=== PATIENT | female | born 1975 ===

== ENCOUNTER 2017-12-20 15:15 | Emergency (ER) | payer OTHER ==
[2017-12-20 15:43] VITALS: TEMP 98.5; BMI 29.2
[2017-12-20] MEDS ORDERED: Sodium Chloride 0.9% 1,000 ML IV STA (16:03)
--- NOTE | 2017-12-20 16:17 | ED PDOC ---
Arrival/HPI - General Chief Complaint: Abdominal Pain Time Seen by Provider: 12/20/17 15:30 Historian: Patient - History of Present Illness Narrative History of Present Illness (Text): 12/20/17 16:12 Leonor Carrion is a 42 year old female, whose past medical history includes total abdominal hysterectomy, who presents to the emergency department complaining of intermittent lower abdominal pain for one month. Patient describes her pain to be sharp located in her lower abdomen and mostly in her pelvic area. No nausea, vomiting, or diarrhea. Patient notes that one week ago she experienced 1 episode of vaginal bleeding which resolved in one day and a similar episode occurred one month prior. Patient also describes to have a numbing sensation radiating back and forth between her right breast to the middle of her right arm for one month. Patient denies any pain to breast or arm , fever, chills, body aches, nipple discharge, rash, or any other complaints at this time. Time/Duration: 1 week Symptom Onset: Gradual Symptom Course: Intermittent Activities at Onset: Light Context: Home Past Medical History - Provider Review Nursing Documentation Reviewed: Yes - Cardiac Hx Hypertension: Yes - Psychiatric Hx Psychophysiologic Disorder: Yes Hx Anxiety: Yes Hx Substance Use: Yes Other/Comment: ADHD - Surgical History Hx Hysterectomy: Yes - Anesthesia Hx Anesthesia: Yes Hx Anesthesia Reactions: No Hx Malignant Hyperthermia: No Family/Social History - Physician Review Nursing Documentation Reviewed: Yes Family/Social History: No Known Family HX Smoking Status: Light Smoker < 10 Cigarettes Daily Hx Alcohol Use: Yes Frequency of alcohol use: Socially Hx Substance Use: Yes Substance used: pot Allergies/Home Meds Allergies/Adverse Reactions: Allergies No Known Allergies Allergy (Verified 12/20/17 15:32) Review of Systems - Review of Systems Constitutional: absent: Fevers, Night Sweats Eyes: absent: Vision Changes ENT: absent: Hearing Changes Respiratory: absent: SOB, Cough Cardiovascular: absent: Chest Pain Gastrointestinal: Abdominal Pain Genitourinary Female: Vaginal Bleeding. absent: Dysuria, Frequency Musculoskeletal: absent: Arthralgias Skin: absent: Rash, Pruritis Neurological: Other (Numbing sensation radiated between right breast to middle of right arm). absent: Headache, Dizziness Endocrine: absent: Diaphoresis Hemo/Lymphatic: absent: Adenopathy Psychiatric: absent: Anxiety, Depression Physical Exam Vital Signs Reviewed: Yes Vital Signs Temp Pulse Resp BP Pulse Ox 12/20/17 17:21 86 18 148/89 96 12/20/17 15:33 98.5 F 95 H 18 155/92 H 96 Temperature: Afebrile Blood Pressure: Hypertensive Pulse: Tachycardic Respiratory Rate: Normal Appearance: Positive for: Well-Appearing, Non-Toxic, Comfortable Pain Distress: None Mental Status: Positive for: Alert and Oriented X 3 - Systems Exam Head: Present: Atraumatic, Normocephalic Pupils: Present: PERRL Extroacular Muscles: Present: EOMI Conjunctiva: Present: Normal Mouth: Present: Moist Mucous Membranes Neck: Present: Normal Range of Motion Respiratory/Chest: Present: Clear to Auscultation, Good Air Exchange. No: Respiratory Distress, Accessory Muscle Use Cardiovascular: Present: Regular Rate and Rhythm, Normal S1, S2. No: Murmurs Abdomen: Present: Tenderness (Tenderness to primarily suprapubic area and mildly lower abd bilaterally ), Guarding. No: Distention Breast/Axillary: Present: Other (chaperoned by nurse Martínez). No: Erythema ( no rash), Masses, Nipple Discharge, Tender to Palpation (breast implants palpable, no tenderness) Genitourinary/Pelvic Exam: Present: Normal External Genitalia, Other ( chaperoned by nurse Martínez; no cervical os visualized. Pt s/p SHAHEED Oct 2016). No: Vaginal Discharge, Vaginal Bleeding, Adenexal Tenderness, Cervical Motion Tendernes, Cervical os Closed Back: Present: Normal Inspection. No: CVA Tenderness, Midline Tenderness, Paraspinal Tenderness Upper Extremity: Present: Normal Inspection. No: Cyanosis, Edema Lower Extremity: Present: Normal Inspection. No: Edema Neurological: Present: GCS=15, CN II-XII Intact, Speech Normal Skin: Present: Warm, Dry, Normal Color. No: Rashes Psychiatric: Present: Alert, Oriented x 3, Normal Insight, Normal Concentration Medical Decision Making ED Course and Treatment: 12/20/17 16:20 Impression: 42 year old female complaining of intermittent lower abdominal pain for one week. Differential Diagnosis included but are not limited to: Lower abdominal pain with vaginal bleeding r/o mass vs. enteritis vs kidney stone Plan: -- EKG -- Abdomen and Pelvis CT with contrast -- Urinalysis and Urine Culture -- Labs -- Toradol, Ativan, and IV fluids -- Reassess and disposition Progress Notes: EKG: Ordered, reviewed, and independently interpreted the EKG. Rate : 103 BPM Rhythm : Sinus Tachycardia Interpretation : No ST-segment elevations or depressions, no T-wave inversions, normal intervals. Comparison : No previous EKG for comparison. 12/20/17 17:46 Patient is also very anxious. She denies any drug use or alcohol. No SI or HI. She's just nervous about her medical issues because her mom not too long ago and she's getting similar medical issues. Ativan given which helped her symptoms and she now appears comfortable. 12/20/17 18:51 CT results discussed with Dr. Arango, Radiologist. He mentioned a tubular structure in the left pelvis. He recommends an ultrasound to r/o hydrosalpinx. Signed out to Dr. Harrington to f/u TV sono, reevaluate and disposition. Accession No. : [id number] Patient Name / ID : GONZALO MENDES / [id number] Exam Date : 12/20/2017 18:27:20 ( Addendum_dictating ) Study Comment : Sex / Age : F / 42Y Creator : Sarabjit Haq MD Dictator : Sarabjit Haq MD Radiographic Technologist : Reinforcing Iron Worker Helper : Sarabjit Haq MD Approver2 : Report Date : 12/20/2017 18:46:38 My Comment : PROCEDURE: CT Abdomen and Pelvis with contrast HISTORY: Lower abdominal pain. Relevant surgical history: Prior hysterectomy COMPARISON: None. TECHNIQUE: Contrast dose: 100 cc Omnipaque 350 Radiation dose: Total exam DLP = 483.95 mGy-cm. This CT exam was performed using one or more of the following dose reduction techniques: Automated exposure control, adjustment of the mA and/or kV according to patient size, and/or use of iterative reconstruction technique. FINDINGS: LOWER THORAX: Unremarkable. LIVER: Hepatic steatosis. No focal masses. No intrahepatic bile duct dilatation or perihepatic ascites. Focal fatty sparing adjacent to the falciform ligament GALLBLADDER AND BILE DUCTS: Unremarkable. PANCREAS: Unremarkable. No gross lesion or ductal dilatation. SPLEEN: Unremarkable. ADRENALS: Unremarkable. No mass. KIDNEYS AND URETERS: Unremarkable. No hydronephrosis. No solid mass. Incidental finding(s): Simple cyst right kidney VASCULATURE: Unremarkable. No aortic aneurysm. BOWEL: Constipation without fecal impaction or obstruction. APPENDIX: Normal appendix. PERITONEUM: Unremarkable. No free fluid. No free air. LYMPH NODES: Unremarkable. No enlarged lymph nodes. BLADDER: Unremarkable. REPRODUCTIVE: Status post hysterectomy. There is a tubular structure in the pelvis on the left which may be a small fluid collection. This measures 1.8 x 3.4 cm. BONES: No acute fracture. OTHER FINDINGS: None. IMPRESSION: No significant or acute findings to account for/ related to the clinical presentation. Additional benign and/or incidental findings described above. 12/20/17 18:54 - Lab Interpretations Lab Results: 12/20/17 16:55 12/20/17 16:55 Lab Results 12/20/17 17:00: Urine Opiates Screen Negative, Urine Methadone Screen Negative, Ur Barbiturates Screen Negative, Ur Phencyclidine Scrn Negative, Ur Amphetamines Screen Positive H, U Benzodiazepines Scrn Negative, U Oth Cocaine Metabols Negative, U Cannabinoids Screen Positive H 12/20/17 17:00: Urine Color Yellow, Urine Appearance Clear, Urine pH 6.0, Ur Specific [place] 1.025, Urine Protein Negative, Urine Glucose (UA) Negative, Urine Ketones Negative, Urine Blood Trace-intact H, Urine Nitrate Negative, Urine Bilirubin Negative, Urine Urobilinogen 0.2, Ur Leukocyte Esterase Negative , Urine RBC 1 - 3, Urine WBC Negative, Ur Epithelial Cells 1 - 3, Urine Bacteria Few 12/20/17 16:55: Sodium 143, Potassium 3.9, Chloride 108 H, Carbon Dioxide 24, Anion Gap 15, BUN 16, Creatinine 0.8, Est GFR ( Amer) > 60, Est GFR (Non- Af Amer) > 60, Random Glucose 105, Calcium 9.9, Total Bilirubin 0.3, AST 32, ALT 40, Alkaline Phosphatase 43, Total Protein 6.9, Albumin 4.0, Globulin 2.9, Albumin/Globulin Ratio 1.4 03/13/18 16:55: WBC 8.1, RBC 3.98, Hgb 12.7, Hct 38.5, MCV 96.7, MCH 31.9, MCHC 33.0, RDW 12.7, Plt Count 292, MPV 10.1, Gran % 60.1, Lymph % (Auto) 31.1, [place] % (Auto) 5.8, Eos % (Auto) 2.5, Baso % (Auto) 0.5, Gran # 4.84, Lymph # (Auto) 2.5, [place] # (Auto) 0.5, Eos # (Auto) 0.2, Baso # (Auto) 0.04 I have reviewed the lab results: Yes - RAD Interpretation Radiology Orders: 12/20/17 16:06 ABD & PELVIS IV CONTRAST ONLY [CT] Stat 12/20/17 18:50 TRANSVAGINAL [US] Stat - Medication Orders Current Medication Orders: Sodium Chloride (Sodium Chloride 0.9%) 1,000 mls @ 100 mls/hr IV .Q10H STA Stop: 12/21/17 02:02 Last Admin: 12/20/17 17:06 Dose: 100 mls/hr eMAR Start Stop Document 12/20/17 17:06 HI (Rec: 12/20/17 17:06 HI [id number]) Intravenous Solution Start Date 12/20/17 Start Time 17:06 Discontinued Medications Ketorolac Tromethamine (Toradol) 30 mg IVP STAT STA Stop: 12/20/17 16:04 Last Admin: 12/20/17 16:50 Dose: 30 mg MAR Pain Assessment Document 12/20/17 16:50 HI (Rec: 12/20/17 17:06 HI [id number]) Pain Reassessment Is this a pain reassessment? No Sleep Is patient sleeping during reassessment? No Presence of Pain Presence of Pain Yes Pain Scale Used Pain Scale Used Numeric Location Upper or Lower Lower Pain Location Body Site Abdomen IVP Administration Document 12/20/17 16:50 HI (Rec: 12/20/17 17:06 HI [id number]) Charges for Administration # of IVP Administrations 1 Lorazepam (Ativan) 1 mg PO ONCE ONE PRN Reason: Protocol Stop: 12/20/17 16:13 Last Admin: 03/13/18 16:50 Dose: 1 mg - Scribe Statement The provider has reviewed the documentation as recorded by the Jean Marieibmary Troncoso Provider Scribe Attestation: All medical record entries made by the Scribe were at my direction and personally dictated by me. I have reviewed the chart and agree that the record accurately reflects my personal performance of the history, physical exam, medical decision making, and the department course for this patient. I have also personally directed, reviewed, and agree with the discharge instructions and disposition. Disposition/Present on Arrival - Present on Arrival Any Indicators Present on Arrival: No History of DVT/PE: No History of Uncontrolled Diabetes: No Urinary Catheter: No History of Decub. Ulcer: No History Surgical Site Infection Following: None - Disposition Have Diagnosis and Disposition been Completed?: No Diagnosis: Abdominal pain, Numbness Disposition Time: 18:54 Condition: IMPROVED Referrals: Ana Harris, [Primary Care Provider] - Follow up with primary Forms: [employer] (Spanish)
[2017-12-20 17:10] LABS: BASO # 0.04 K/mm3 (0.0-2.0); BASO % 0.5 % (0.0-3.0); EOS # 0.2 (0.0-0.7); EOS % 2.5 % (1.5-5.0); GRAN # 4.84 (1.4-6.5); GRAN % 60.1 % (50.0-68.0); HEMOGLOBIN 12.7 g/dL (12.0-16.0); LYMPH # 2.5 (1.2-3.4); LYMPH % 31.1 % (22.0-35.0); MEAN CELL VOLUME 96.7 fl (80.0-105.0); MEAN CORPUSCULAR HEMOGLOBIN 31.9 pg (25.0-35.0); MEAN PLATELET VOLUME 10.1 fl (7.0-11.0); MONO # 0.5 (0.1-0.6); MONO % 5.8 % (1.0-6.0); RBC 3.98 10^6/uL (3.5-6.1); RED CELL DISTRIBUTION WIDTH 12.7 % (11.5-14.5); WHITE BLOOD COUNT 8.1 10^3/ul (4.5-11.0)
[2017-12-20 17:19] LABS: ALB/GLOB RATIO 1.4 (1.1-1.8); ALT/SGPT 40 U/L (7-56); AST/SGOT 32 U/L (14-36); BLOOD UREA NITROGEN 16 mg/dL (7-21); CALCIUM 9.9 mg/dL (8.4-10.5); GFR AFRICAN-AMERICAN > 60; GFR NON-AFRICAN AMERICAN > 60
[2017-12-20 17:48] LABS: URINE BILIRUBIN NEGATIVE (NEGATIVE); URINE BLOOD TRACE-INTACT (NEGATIVE); URINE GLUCOSE (UA) NEGATIVE (NEGATIVE); URINE LEUKOCYTE ESTERASE NEGATIVE Leu/uL (NEGATIVE); URINE PROTEIN NEGATIVE mg/dL (<30 mg/dL); URINE UROBILINOGEN 0.2 E.U./dL (<1 E.U./dL)
[2017-12-20 17:49] LABS: URINE APPEARANCE CLEAR (CLEAR); URINE COLOR YELLOW (YELLOW)
[2017-12-20 17:54] LABS: URINE BACTERIA FEW (NEG); URINE WBC NEGATIVE /hpf (0-6)
[2017-12-20] MEDS ORDERED: Iohexol 350 MG/100 ML VIAL ONE (18:04)
[2017-12-20 18:08] LABS: BARBITURATES, UR NEGATIVE (NEGATIVE); BENZODIAZEPINES, UR NEGATIVE (NEGATIVE); OPIATES, UR NEGATIVE (NEGATIVE); PHENCYCLIDINE, UR NEGATIVE (NEGATIVE)
--- NOTE | 2017-12-20 18:48 | CT ---
PROCEDURE: CT Abdomen and Pelvis with contrast HISTORY: Lower abdominal pain. Relevant surgical history: Prior hysterectomy COMPARISON: None. TECHNIQUE: Contrast dose: 100 cc Omnipaque 350 Radiation dose: Total exam DLP = 483.95 mGy-cm. This CT exam was performed using one or more of the following dose reduction techniques: Automated exposure control, adjustment of the mA and/or kV according to patient size, and/or use of iterative reconstruction technique. FINDINGS: LOWER THORAX: Unremarkable. LIVER: Hepatic steatosis. No focal masses. No intrahepatic bile duct dilatation or perihepatic ascites. Focal fatty sparing adjacent to the falciform ligament GALLBLADDER AND BILE DUCTS: Unremarkable. PANCREAS: Unremarkable. No gross lesion or ductal dilatation. SPLEEN: Unremarkable. ADRENALS: Unremarkable. No mass. KIDNEYS AND URETERS: Unremarkable. No hydronephrosis. No solid mass. Incidental finding(s): Simple cyst right kidney VASCULATURE: Unremarkable. No aortic aneurysm. BOWEL: Constipation without fecal impaction or obstruction. APPENDIX: Normal appendix. PERITONEUM: Unremarkable. No free fluid. No free air. LYMPH NODES: Unremarkable. No enlarged lymph nodes. BLADDER: Unremarkable. REPRODUCTIVE: Status post hysterectomy. There is a tubular structure in the pelvis on the left which may be a small fluid collection. This measures 1.8 x 3.4 cm. BONES: No acute fracture. OTHER FINDINGS: None. IMPRESSION: No significant or acute findings to account for/ related to the clinical presentation. Additional benign and/or incidental findings described above.
[2017-12-20 19:16] VITALS: RESP 16
[2017-12-20] MEDS ORDERED: Morphine 2 mg/ml ISec IVP STA (19:31)
--- NOTE | 2017-12-20 21:33 | ED PDOC ---
Physical Exam Vital Signs Temp Pulse Resp BP Pulse Ox 12/20/17 19:00 82 16 145/73 100 12/20/17 17:21 86 18 148/89 96 12/20/17 15:33 98.5 F 95 H 18 155/92 H 96 Medical Decision Making ED Course and Treatment: us results d/w pt , pt will follow up with her test engineer nuclear equipment or dr fragoso - Lab Interpretations Lab Results: 12/20/17 16:55 12/20/17 16:55 Lab Results 12/20/17 17:00: Urine Opiates Screen Negative, Urine Methadone Screen Negative, Ur Barbiturates Screen Negative, Ur Phencyclidine Scrn Negative, Ur Amphetamines Screen Positive H, U Benzodiazepines Scrn Negative, U Oth Cocaine Metabols Negative, U Cannabinoids Screen Positive H 12/20/17 17:00: Urine Color Yellow, Urine Appearance Clear, Urine pH 6.0, Ur Specific [place] 1.025, Urine Protein Negative, Urine Glucose (UA) Negative, Urine Ketones Negative, Urine Blood Trace-intact H, Urine Nitrate Negative, Urine Bilirubin Negative, Urine Urobilinogen 0.2, Ur Leukocyte Esterase Negative , Urine RBC 1 - 3, Urine WBC Negative, Ur Epithelial Cells 1 - 3, Urine Bacteria Few 12/20/17 16:55: Sodium 143, Potassium 3.9, Chloride 108 H, Carbon Dioxide 24, Anion Gap 15, BUN 16, Creatinine 0.8, Est GFR ( Amer) > 60, Est GFR (Non- Af Amer) > 60, Random Glucose 105, Calcium 9.9, Total Bilirubin 0.3, AST 32, ALT 40, Alkaline Phosphatase 43, Total Protein 6.9, Albumin 4.0, Globulin 2.9, Albumin/Globulin Ratio 1.4 12/20/17 16:55: WBC 8.1, RBC 3.98, Hgb 12.7, Hct 38.5, MCV 96.7, MCH 31.9, MCHC 33.0, RDW 12.7, Plt Count 292, MPV 10.1, Gran % 60.1, Lymph % (Auto) 31.1, [place] % (Auto) 5.8, Eos % (Auto) 2.5, Baso % (Auto) 0.5, Gran # 4.84, Lymph # (Auto) 2.5, [place] # (Auto) 0.5, Eos # (Auto) 0.2, Baso # (Auto) 0.04 - RAD Interpretation Radiology Orders: 12/20/17 16:06 ABD & PELVIS IV CONTRAST ONLY [CT] Stat 12/20/17 18:50 TRANSVAGINAL [US] Stat - Medication Orders Current Medication Orders: Sodium Chloride (Sodium Chloride 0.9%) 1,000 mls @ 100 mls/hr IV .Q10H STA Stop: 12/21/17 02:02 Last Admin: 12/20/17 17:06 Dose: 100 mls/hr eMAR Start Stop Document 12/20/17 17:06 HI (Rec: 12/20/17 17:06 HI [id number]) Intravenous Solution Start Date 12/20/17 Start Time 17:06 Discontinued Medications Ketorolac Tromethamine (Toradol) 30 mg IVP STAT STA Stop: 12/20/17 16:04 Last Admin: 12/20/17 16:50 Dose: 30 mg MAR Pain Assessment Document 12/20/17 16:50 HI (Rec: 12/20/17 17:06 HI [id number]) Pain Reassessment Is this a pain reassessment? No Sleep Is patient sleeping during reassessment? No Presence of Pain Presence of Pain Yes Pain Scale Used Pain Scale Used Numeric Location Upper or Lower Lower Pain Location Body Site Abdomen IVP Administration Document 12/20/17 16:50 HI (Rec: 12/20/17 17:06 HI [id number]) Charges for Administration # of IVP Administrations 1 Re-Assess: MAR Pain Assessment Document 12/20/17 17:50 HI (Rec: 12/20/17 19:32 HI [id number]) Pain Reassessment Is this a pain reassessment? Yes Sleep Is patient sleeping during reassessment? Yes Lorazepam (Ativan) 1 mg PO ONCE ONE PRN Reason: Protocol Stop: 12/20/17 16:13 Last Admin: 12/20/17 16:50 Dose: 1 mg Morphine Sulfate (Morphine) 2 mg IVP STAT STA Stop: 12/20/17 19:32 Last Admin: 12/20/17 19:42 Dose: 2 mg MAR Pain Assessment Document 12/20/17 19:42 HI (Rec: 12/20/17 19:42 HI [id number]) Pain Reassessment Is this a pain reassessment? No Sleep Is patient sleeping during reassessment? No Presence of Pain Presence of Pain Yes Location Pain Location Body Site Abdomen IVP Administration Document 12/20/17 19:42 HI (Rec: 12/20/17 19:42 HI [id number]) Charges for Administration # of IVP Administrations 1 Disposition/Present on Arrival - Present on Arrival Any Indicators Present on Arrival: No History of DVT/PE: No History of Uncontrolled Diabetes: No Urinary Catheter: No History of Decub. Ulcer: No History Surgical Site Infection Following: None - Disposition Have Diagnosis and Disposition been Completed?: Yes Diagnosis: Abdominal pain, Numbness Disposition: HOME/ ROUTINE Disposition Time: 21:30 Condition: IMPROVED Discharge Instructions (ExitCare): Acute Abdomen (Belly Pain) Additional Instructions: follow up with test engineer nuclear equipment as soon as possible Referrals: Ana Harris, [Primary Care Provider] - Follow up with primary Mahamed Fragoso MD [Staff Provider] - Follow up with primary Forms: [employer] (Korean)
[2017-12-20 22:11] VITALS: O2SAT 99
[2017-12-20 22:20] VITALS: BP 145/82; PULSE 79
--- NOTE | 2017-12-21 07:30 | CARD ---
APPROVED REPORT EKG Measurement Heart [id number] CO 140P77 [id number] <Conclusion> Sinus tachycardia Electrical artifact present Otherwise normal ECG
--- NOTE | 2017-12-21 10:20 | US ---
HISTORY: eval tubular struct on CT results; lower abd pain COMPARISON: None available. TECHNIQUE: Transvaginal FINDINGS: UTERUS: Removed RIGHT OVARY: Not visible LEFT OVARY: Measures 2.83 x 2.30 x 2.11 cm. No solid mass. Normal flow. Several cysts measuring between 1.21.5 cm in diameter. FREE FLUID: There is a small amount of free fluid OTHER FINDINGS: None. IMPRESSION: Left-sided ovarian cysts. Fluid in the cul-de-sac. Previous hysterectomy
== END 2017-12-20 22:20 | disposition home or self-care (01) ==
LOC: ED 15:15
DX: R10.9 Unspecified abdominal pain (principal); R20.2 Paresthesia of skin; I10 Essential (primary) hypertension; F17.210 Nicotine dependence, cigarettes, uncomplicated
CPT/HCPCS: 74177; 76830; 80053; 80324; 80345; 80346; 80349; 80353; 80358; 80361; 81001; 83992; 85025; 87086; 93005; 96374; 96375; 99285; J1885; J2270; J7040; Q9967